=== PATIENT | female | born 1985 | race Caucasian/White ===

== ENCOUNTER 2025-09-08 19:25 | Emergency (ER) | payer BC ==
[~2025-09-08] VITALS: Ht 165.1 cm; Wt 59.0 kg
[2025-09-08 19:43] VITALS: O2SAT 98
[2025-09-08 20:21] VITALS: TEMP 36.8
[2025-09-08 20:27] LABS: BASOPHILS % 0.5 % (0.0-2.0); EOSINOPHILS % 0.6 % (0.0-5.0); HEMATOCRIT. 37.7 % (36.0-48.0); HEMOGLOBIN. 13.1 g/dL (12.0-16.0); LYMPHOCYTES % 14.2 % (20.0-50.0); MEAN PLATELET VOLUME 9.0 fl (7.4-10.4); MONOCYTES % 6.9 % (2.0-8.0); NEUTROPHILS % 77.8 % (40.0-76.0); PLATELET 172 x1000/uL (130-400); RED BLOOD CELL COUNT 4.29 mill/uL (4.2-5.4); RED CELL DISTRIBUTION WIDTH 13.0 % (11.6-14.6)
[2025-09-08 20:42] LABS: CREATININE 0.9 mg/dL (0.6-1.0); UREA NITROGEN BLOOD 9 mg/dL (9-23)
[2025-09-08 20:43] LABS: TROPONIN I HIGH SENSITIVITY < 4 ng/L (3.0-34)
[2025-09-08 20:44] LABS: ASPARTATE AMINOTRANSFERASE 15 IU/L (<34); BILIRUBIN DIRECT 0.1 mg/dL (<=3.0); BILIRUBIN TOTAL 0.4 mg/dL (0.1-1.0); PROTEIN TOTAL 6.5 g/dL (6.0-8.3)
[2025-09-08 20:45] LABS: B-HCG QUANTITATIVE < 1 mIU/mL (<6)
[2025-09-08] MEDS: ONDANSETRON HCL 4MG/2ML INJ IV ONE (21:12)
[2025-09-08] MEDS: SODIUM CHLORIDE 0.9% 1,000 ML IV ONE (21:12)
[2025-09-08] MEDS: FAMOTIDINE 20MG/2ML VIAL IV ONE (21:13)
[2025-09-08] MEDS ORDERED: ONDA-239 PO (21:15)
[2025-09-08 23:12] VITALS: BP 118/74; PULSE 60; RESP 16; O2SAT 100
== END 2025-09-08 23:20 | disposition home or self-care (01) ==
LOC: ER 19:25 → CMPBEDREQ 09-09 07:58
DX: E86.0 Dehydration (principal); R55 Syncope and collapse; R11.0 Nausea; M19.90 Unspecified osteoarthritis, unspecified site; R06.02 Shortness of breath; R10.20 Pelvic and perineal pain unspecified side; Z23 Encounter for immunization; Z88.0 Allergy status to penicillin; Z88.2 Allergy status to sulfonamides; Z79.899 Other long term (current) drug therapy
CPT/HCPCS: 99285; 96374; 71045; 96361; 96375; 80076; 80048; 81025; 84702; 83880; 83605; 83690; 83735; 85025; 84484; 36415; 93005; J1308; J2405; J7030